=== PATIENT | female | born 1935 | race Hispanic/Latino ===

== ENCOUNTER 2017-07-02 17:21 | Emergency (ER) | payer OTHER, MEDICARE ==
[2017-07-02] MEDS ORDERED: ONDANSETRON HCL 4 MG/2 ML VIAL ONE (17:33)
[2017-07-02] MEDS ORDERED: SODIUM CHLORIDE 0.9% 1000ML 1,000 ML IV ONE (17:33)
[2017-07-02 17:55] LABS: BASOPHILS % (AUTO) 0.6 % (0.0-5.0); EOSINOPHILS % (AUTO) 0.7 % (0.0-8.0); HEMATOCRIT 39.4 % (36-48); LYMPHOCYTES % (AUTO) 17.6 % (21.0-51.0); MEAN CORPUSCULAR HEMOGLOBIN 30.8 pg (27.0-33.0); MEAN CORPUSCULAR HGB CONC 34.6 g/dL (32.0-36.0); MEAN CORPUSCULAR VOLUME 89.1 fL (79-99); MONOCYTES % (AUTO) 3.8 % (3.0-13.0); NEUTROPHILS % (AUTO) 77.3 % (40.0-77.0); PLATELET COUNT (AUTO) 218 K/uL (130-400); RED BLOOD CELL COUNT(AUTO) 4.43 MIL/uL (4.00-5.50); RED CELL DISTRIBUTION WIDTH 13.2 % (11.0-15.5); WHITE BLOOD COUNT (AUTO) 7.6 K/uL (4.8-10.8)
[2017-07-02 18:09] LABS: INR 0.99 (0.85-1.15); PROTHROMBIN TIME 10.4 SEC (9.6-11.6)
[2017-07-02 18:12] LABS: CARBON DIOXIDE 21 mmol/L (21-32); CHLORIDE 101 mmol/L (101-111); CREATININE 1.1 mg/dL (0.5-1.5); GLOMERULAR FILTR. RATE CALC 51 mL/min (>60); GLUCOSE,RANDOM 189 mg/dL (70-105); POTASSIUM 4.4 mmol/L (3.5-5.1); SODIUM SERUM 137 mmol/L (136-145); UREA NITROGEN, BLOOD 14 mg/dL (7-18)
[2017-07-02 18:23] LABS: ALANINE AMINOTRANSFERASE 15 U/L (12-78); ALBUMIN 4.3 g/dL (3.5-5.0); AMYLASE 65 U/L (25-115); ASPARTATE AMINOTRANSFERASE 16 U/L (10-37); BILIRUBIN,TOTAL 0.6 mg/dL (0.2-1.0); CREATINE KINASE MB < 0.5 ng/mL (0.5-3.6); CREATINE KINASE, TOTAL 45 U/L (21-232); LIPASE 315 U/L (114-286); TOTAL PROTEIN, SERUM 7.5 g/dL (6.0-8.3)
[2017-07-02 18:34] LABS: APPEARANCE,URINE Clear (CLEAR); BILIRUBIN,URINE Negative (NEGATIVE); COLOR,URINE Yellow (YELLOW); GLUCOSE, URINE (UA) Negative (NEGATIVE); KETONES,URINE 15 mg/dL (NEGATIVE); LEUKOCYTE ESTERASE ,URINE Trace (NEGATIVE); NITRATE,URINE Negative (NEGATIVE); OCCULT BLOOD,URINE Negative (NEGATIVE); PROTEIN,URINE Negative (NEGATIVE); UROBILINOGEN,URINE 0.2 mg/dL (0.2-1.0)
[2017-07-02 18:54] LABS: BACTERIA,URINE Rare /HPF (None Seen); RBC,URINE 0-1 /HPF (0-1); SQUAMOUS EPITHELIAL CELL,UR Few /LPF (0-2)
[2017-07-02] MEDS ORDERED: LEVOFLOXACIN 500 MG TABLET ONE (21:09)
== END 2017-07-02 21:31 | disposition home or self-care (01) ==
LOC: EDH 17:21
DX: A09 Infectious gastroenteritis and colitis, unspecified (principal); N39.0 Urinary tract infection, site not specified; E11.9 Type 2 diabetes mellitus without complications; E78.5 Hyperlipidemia, unspecified; I10 Essential (primary) hypertension; Z88.0 Allergy status to penicillin
CPT/HCPCS: 36415; 74176; 80053; 81001; 82150; 82550; 82553; 83690; 85025; 85610; 85730; 87088; 96361; 96374; 99285; J2405; J7030

== ENCOUNTER 2017-08-27 12:16 | Observation (INO) | payer OTHER, MEDICARE ==
[~2017-08-27] VITALS: Ht 157.5 cm; Wt 58.1 kg
[2017-08-27] MEDS ORDERED: ONDANSETRON HCL MDV 20ML 2 MG/ML VIAL ONE (12:29)
[2017-08-27 12:52] LABS: BASOPHILS % (AUTO) 0.7 % (0.0-5.0); HEMATOCRIT 40.1 % (36-48); LYMPHOCYTES % (AUTO) 37.5 % (21.0-51.0); MEAN CORPUSCULAR HEMOGLOBIN 31.5 pg (27.0-33.0); MEAN CORPUSCULAR HGB CONC 35.5 g/dL (32.0-36.0); MEAN CORPUSCULAR VOLUME 88.8 fL (79-99); MONOCYTES % (AUTO) 5.5 % (3.0-13.0); NEUTROPHILS % (AUTO) 55.3 % (40.0-77.0); PLATELET COUNT (AUTO) 238 K/uL (130-400); RED BLOOD CELL COUNT(AUTO) 4.51 MIL/uL (4.00-5.50); RED CELL DISTRIBUTION WIDTH 12.6 % (11.0-15.5); WHITE BLOOD COUNT (AUTO) 7.8 K/uL (4.8-10.8)
[2017-08-27 13:12] LABS: CREATININE 1.1 mg/dL (0.5-1.5); POTASSIUM 3.8 mmol/L (3.5-5.1)
[2017-08-27 13:17] LABS: ALBUMIN 4.1 g/dL (3.5-5.0); BILIRUBIN,TOTAL 0.4 mg/dL (0.2-1.0); TOTAL PROTEIN, SERUM 7.6 g/dL (6.0-8.3)
[2017-08-27] MEDS ORDERED: SODIUM CHLORIDE 0.9% 1000ML 1,000 ML IV ONE (14:25)
[2017-08-27 16:45] VITALS: BP 122/72
[2017-08-27] MEDS ORDERED: ACETAMINOPHEN 325 MG TAB PO PRN (17:00)
[2017-08-27] MEDS ORDERED: ONDANSETRON HCL 4 MG/2 ML VIAL IVP PRN (17:00)
[2017-08-27] MEDS ORDERED: MORPHINE SULFATE 4 MG/1ML SYG IVP PRN (17:00)
[2017-08-27] MEDS ORDERED: MORPHINE SULFATE 2 MG/ML 1ML SYG IVP PRN (17:15)
[2017-08-27] MEDS ORDERED: GLUCAGON 1MG KIT 1 MG ML IM PRN (17:15)
[2017-08-27] MEDS ORDERED: DEXTROSE 50%-WATER 50 ML DISP.SYRIN IV PRN (17:15)
[2017-08-27] MEDS: INSULIN R NPO SSI SQ SCH (18:00)
[2017-08-27] MEDS: SODIUM CHLORIDE 0.9% 1000ML 1,000 ML IV SCH ×2 (19:21→19:43)
[2017-08-27 20:07] VITALS: BP 116/50
[2017-08-27] MEDS ORDERED: POTASSIUM CHLORIDE 10% ELIXIR 20 MEQ/15 ML UDCUP PO PRN (23:30)
[2017-08-27] MEDS ORDERED: POTASSIUM CHLORIDE 20 MEQ ERTAB PO PRN (23:30)
[2017-08-27] MEDS ORDERED: POTASSIUM CHLORIDE 20MEQ/100ML 100 ML IV PRN (23:30)
[2017-08-27] MEDS ORDERED: HYDRALAZINE HCL 20 MG/ML VIAL IV PRN (23:30)
[2017-08-27] MEDS ORDERED: LIDOCAINE HCL-MPF 1% 2ML VIAL IVP PRN (23:30)
[2017-08-28] MEDS: INSULIN R NPO SSI SQ SCH
[2017-08-28 00:07] VITALS: BP 110/56
[2017-08-28] MEDS: SODIUM CHLORIDE 0.9% 1000ML 1,000 ML IV SCH (01:39)
[2017-08-28 03:46] VITALS: BP 104/49
[2017-08-28 05:00] LABS: HEMATOCRIT 32.7 % (36-48); MEAN CORPUSCULAR HEMOGLOBIN 30.9 pg (27.0-33.0); MEAN CORPUSCULAR HGB CONC 34.7 g/dL (32.0-36.0); PLATELET COUNT (AUTO) 175 K/uL (130-400); RED BLOOD CELL COUNT(AUTO) 3.68 MIL/uL (4.00-5.50); RED CELL DISTRIBUTION WIDTH 12.8 % (11.0-15.5)
[2017-08-28 05:06] LABS: CREATININE 1.1 mg/dL (0.5-1.5); POTASSIUM 4.1 mmol/L (3.5-5.1)
[2017-08-28 05:14] LABS: HEMOGLOBIN A1C 6.8 % (4.0-6.0)
[2017-08-28 07:34] VITALS: BP 116/61
[2017-08-28] MEDS ORDERED: PANTOPRAZOLE 40 MG/VIAL IV SCH (09:00)
[2017-08-28 10:55] VITALS: BP 136/62
[2017-08-28] MEDS ORDERED: INSULIN HUMULIN R 100 UNIT/ML 3ML SQ SCH (12:15)
[2017-08-28 16:24] VITALS: BP 141/69
[2017-08-28] MEDS ORDERED: PANTOPRAZOLE SODIUM 40 MG TABLET.DR PO SCH (16:30)
== END 2017-08-28 17:41 | disposition home or self-care (01) ==
LOC: EDH 12:16 → EDHIP 15:44 → 4BH 16:27
PROVIDERS: ADMIT Internal Medicine; ATTEND Internal Medicine
DX: K85.90 Acute pancreatitis without necrosis or infection, unspecified (principal); E86.0 Dehydration; K29.70 Gastritis, unspecified, without bleeding; A41.9 Sepsis, unspecified organism; M81.0 Age-related osteoporosis without current pathological fracture; D64.9 Anemia, unspecified; E78.5 Hyperlipidemia, unspecified; I10 Essential (primary) hypertension; E11.9 Type 2 diabetes mellitus without complications; E44.0 Moderate protein-calorie malnutrition; Z85.09 Personal history of malignant neoplasm of other digestive organs; Z90.49 Acquired absence of other specified parts of digestive tract; Z79.899 Other long term (current) drug therapy
CPT/HCPCS: 36415 ×2; 80048; 80053; 82948 ×5; 83036; 83690; 84478; 84484; 85025; 85027; 93005; 96360; 96361 ×2; 99285; C9113; G0378 ×26; J1815; J7030 ×3

== ENCOUNTER 2017-11-21 07:36 | Observation (INO) | payer OTHER, MEDICARE ==
[~2017-11-21] VITALS: Ht 157.5 cm; Wt 59.8 kg
[2017-11-21 09:18] LABS: BASOPHILS % (AUTO) 0.3 % (0.0-5.0); EOSINOPHILS % (AUTO) 0.3 % (0.0-8.0); HEMATOCRIT 35.5 % (36-48); LYMPHOCYTES % (AUTO) 7.2 % (21.0-51.0); MEAN CORPUSCULAR HEMOGLOBIN 29.6 pg (27.0-33.0); MONOCYTES % (AUTO) 4.5 % (3.0-13.0); NEUTROPHILS % (AUTO) 87.7 % (40.0-77.0); PLATELET COUNT (AUTO) 233 K/uL (130-400); RED BLOOD CELL COUNT(AUTO) 4.08 MIL/uL (4.00-5.50); RED CELL DISTRIBUTION WIDTH 13.7 % (11.0-15.5); WHITE BLOOD COUNT (AUTO) 11.6 K/uL (4.8-10.8)
[2017-11-21 09:19] LABS: APPEARANCE,URINE Clear (CLEAR); BILIRUBIN,URINE Negative (NEGATIVE); COLOR,URINE Yellow (YELLOW); GLUCOSE, URINE (UA) Negative (NEGATIVE); KETONES,URINE Trace mg/dL (NEGATIVE); LEUKOCYTE ESTERASE ,URINE Negative (NEGATIVE); NITRATE,URINE Negative (NEGATIVE); OCCULT BLOOD,URINE Negative (NEGATIVE); PROTEIN,URINE Negative (NEGATIVE); UROBILINOGEN,URINE 0.2 mg/dL (0.2-1.0)
[2017-11-21] MEDS ORDERED: FENTANYL CITRATE PF 50 MCG/1 ML 2ML VIAL ONE (09:24)
[2017-11-21 09:28] LABS: CREATININE 1.1 mg/dL (0.5-1.5); POTASSIUM 4.2 mmol/L (3.5-5.1)
[2017-11-21 09:31] LABS: BACTERIA,URINE None Seen /HPF (None Seen); RBC,URINE 0-1 /HPF (0-1); SQUAMOUS EPITHELIAL CELL,UR 0-2 /HPF (0-2); WBC,URINE None Seen /HPF (0-1)
[2017-11-21 09:34] LABS: ALBUMIN 3.3 g/dL (3.5-5.0); BILIRUBIN,TOTAL 0.5 mg/dL (0.2-1.0); TOTAL PROTEIN, SERUM 7.6 g/dL (6.0-8.3)
[2017-11-21] MEDS ORDERED: D5LR-20 MEQ KCL 1000 ML 1,000 ML IV SCH ×2 (11:45→13:00)
[2017-11-21] MEDS ORDERED: ONDANSETRON HCL 4 MG/2 ML VIAL IVP PRN (11:45)
[2017-11-21] MEDS ORDERED: HYDROCODONE/ACETAMINOPHEN 5/325 MG TAB PO PRN (11:45)
[2017-11-21] MEDS ORDERED: MORPHINE SULFATE 2 MG/ML 1ML SYG IVP PRN (11:45)
[2017-11-21] MEDS ORDERED: LEVOFLOXACIN 500 MG/D5W 100 ML 100 ML ONE (11:48)
[2017-11-21] MEDS ORDERED: POTASSIUM CHLORIDE 20 MEQ ERTAB PO PRN (12:00)
[2017-11-21] MEDS: LEVOFLOXACIN 500 MG/D5W 100 ML 100 ML IV SCH (12:00)
[2017-11-21] MEDS ORDERED: LIDOCAINE HCL-MPF 1% 2ML VIAL IJ PRN (12:00)
[2017-11-21] MEDS ORDERED: POTASSIUM CHLORIDE 20MEQ/100ML 100 ML IV PRN (12:00)
[2017-11-21] MEDS ORDERED: POTASSIUM CHLORIDE 10% ELIXIR 20 MEQ/15 ML UDCUP PO PRN (12:00)
[2017-11-21] MEDS ORDERED: HYDRALAZINE HCL 20 MG/ML VIAL IV PRN (12:00)
[2017-11-21 12:44] VITALS: BP 118/44
[2017-11-21] MEDS: PANTOPRAZOLE SODIUM 40 MG TABLET.DR PO SCH ×2 (13:00→15:44)
[2017-11-21] MEDS: METRONIDAZOLE 500MG/100ML BAG 100 ML IVPB SCH ×2 (13:54→20:17)
[2017-11-21] MEDS ORDERED: ACETAMINOPHEN 325 MG TAB PO PRN (15:30)
[2017-11-21] MEDS ORDERED: ACETAMINOPHEN 325 MG TAB ONE (15:36)
[2017-11-21 16:18] VITALS: BP 99/47
[2017-11-21] MEDS ORDERED: DEXTROSE 5%-LACTATED RINGERS 1,000 ML IV SCH (19:45)
[2017-11-21 20:00] VITALS: BP 112/52
[2017-11-21] MEDS: DEXTROSE 5%-LACTATED RINGERS 1,000 ML IV SCH (20:17)
[2017-11-21] MEDS: HEPARIN SODIUM 5000UNIT/ML 1ML VIAL SQ SCH (20:21)
[2017-11-21 23:56] VITALS: BP 111/50
[2017-11-22 04:00] VITALS: BP 100/51
[2017-11-22] MEDS: METRONIDAZOLE 500MG/100ML BAG 100 ML IVPB SCH ×3 (04:54→21:23)
[2017-11-22] MEDS ORDERED: NITR.4P TD (05:13)
[2017-11-22] MEDS ORDERED: LORA-705 PO (05:13)
[2017-11-22] MEDS ORDERED: CIPR500S5 PO (05:13)
[2017-11-22] MEDS ORDERED: CYAN1TAB44 PO (05:13)
[2017-11-22] MEDS ORDERED: ALEN70TA47 PO (05:13)
[2017-11-22] MEDS ORDERED: CLOP75TA32 PO (05:13)
[2017-11-22] MEDS ORDERED: CHOL50004 PO (05:13)
[2017-11-22] MEDS ORDERED: RANI150T7 PO (05:13)
[2017-11-22] MEDS ORDERED: ACYC800T PO (05:13)
[2017-11-22] MEDS ORDERED: LOSA50TA37 PO (05:13)
[2017-11-22 05:20] LABS: HEMATOCRIT 31.6 % (36-48); MEAN CORPUSCULAR HEMOGLOBIN 30.9 pg (27.0-33.0); MEAN CORPUSCULAR VOLUME 88.2 fL (79-99); PLATELET COUNT (AUTO) 266 K/uL (130-400); RED BLOOD CELL COUNT(AUTO) 3.58 MIL/uL (4.00-5.50); RED CELL DISTRIBUTION WIDTH 13.2 % (11.0-15.5); WHITE BLOOD COUNT (AUTO) 7.2 K/uL (4.8-10.8)
[2017-11-22 05:46] LABS: CREATININE 1.1 mg/dL (0.5-1.5); MAGNESIUM 2.3 mg/dL (1.80-2.40); POTASSIUM 4.5 mmol/L (3.5-5.1)
[2017-11-22 07:45] VITALS: BP 110/54
[2017-11-22] MEDS: HEPARIN SODIUM 5000UNIT/ML 1ML VIAL SQ SCH ×2 (09:00→21:27)
[2017-11-22] MEDS: INSULIN HUMULIN R 100 UNIT/ML 3ML SQ SCH ×3 (12:00→21:28)
[2017-11-22 12:11] VITALS: BP 126/60
[2017-11-22] MEDS: DEXTROSE 5%-LACTATED RINGERS 1,000 ML IV SCH (13:23)
[2017-11-22 16:00] VITALS: BP 130/62
[2017-11-22 20:17] VITALS: BP 140/66
[2017-11-22 23:49] VITALS: BP 121/56
[2017-11-23 04:30] VITALS: BP 135/64
[2017-11-23] MEDS: INSULIN HUMULIN R 100 UNIT/ML 3ML SQ SCH ×2 (06:00→12:00)
[2017-11-23] MEDS: METRONIDAZOLE 500MG/100ML BAG 100 ML IVPB SCH ×2 (06:35→13:33)
[2017-11-23] MEDS: DEXTROSE 5%-LACTATED RINGERS 1,000 ML IV SCH (06:36)
[2017-11-23 08:00] VITALS: BP 162/75
[2017-11-23] MEDS: PANTOPRAZOLE SODIUM 40 MG TABLET.DR PO SCH (10:33)
[2017-11-23] MEDS: HEPARIN SODIUM 5000UNIT/ML 1ML VIAL SQ SCH (10:39)
[2017-11-23] MEDS: LEVOFLOXACIN 500 MG/D5W 100 ML 100 ML IV SCH (11:57)
[2017-11-23 12:00] VITALS: BP 140/68
== END 2017-11-23 17:35 | disposition home or self-care (01) ==
LOC: EDH 07:36 → EDHIP 11:15 → INTOOBSV 11:15 → 3DH 12:23
PROVIDERS: ADMIT Internal Medicine Critical Care Medicine; ATTEND Internal Medicine Critical Care Medicine
DX: K57.32 Diverticulitis of large intestine without perforation or abscess without bleeding (principal); I10 Essential (primary) hypertension; E11.9 Type 2 diabetes mellitus without complications; E78.5 Hyperlipidemia, unspecified; R11.0 Nausea
CPT/HCPCS: 36415 ×2; 74176; 80048; 80053; 81001; 82948 ×10; 83690; 83735; 85025; 85027; 96360; 96361 ×3; 96372 ×3; 99285; G0378 ×54; J1644 ×4; J1815; J1956 ×2; J3010; J3480; J3490 ×10

== ENCOUNTER 2018-07-14 17:15 | Emergency (ER) | payer OTHER, MEDICARE ==
[~2018-07-14 17:15] MED LIST: ACYC800T PO; ALEN70TA10 PO; CHOL50004 PO; CIPR500S5 PO; CLOP75TA32 PO; CYAN1TAB44 PO; LORA-705 PO; LOSA50TA64 PO; NITR.4P TD; RANI150T7 PO
[2018-07-14] MEDS ORDERED: ONDANSETRON HCL 4 MG/2 ML VIAL ONE (18:44)
[2018-07-14] MEDS ORDERED: SODIUM CHLORIDE 0.9% 500ML 500 ML IV ONE (18:44)
[2018-07-14 18:51] LABS: BASOPHILS % (AUTO) 0.7 % (0.0-5.0); EOSINOPHILS % (AUTO) 0.4 % (0.0-8.0); HEMATOCRIT 35.1 % (36-48); LYMPHOCYTES % (AUTO) 6.6 % (21.0-51.0); MEAN CORPUSCULAR HEMOGLOBIN 31.5 pg (27.0-33.0); MEAN CORPUSCULAR HGB CONC 34.2 g/dL (32.0-36.0); MONOCYTES % (AUTO) 6.2 % (3.0-13.0); NEUTROPHILS % (AUTO) 86.1 % (40.0-77.0); PLATELET COUNT (AUTO) 155 K/uL (130-400); RED BLOOD CELL COUNT(AUTO) 3.81 MIL/uL (4.00-5.50); RED CELL DISTRIBUTION WIDTH 12.7 % (11.0-15.5); WHITE BLOOD COUNT (AUTO) 6.4 K/uL (4.8-10.8)
[2018-07-14 19:04] LABS: CREATININE 1.3 mg/dL (0.5-1.5); POTASSIUM 3.9 mmol/L (3.5-5.1)
[2018-07-14 19:08] LABS: ALBUMIN 3.6 g/dL (3.5-5.0); BILIRUBIN,DIRECT 0.2 mg/dL (0.0-0.3); BILIRUBIN,TOTAL 0.5 mg/dL (0.2-1.0); TOTAL PROTEIN, SERUM 7.1 g/dL (6.0-8.3)
[2018-07-14 19:15] LABS: APPEARANCE,URINE Clear (CLEAR); BILIRUBIN,URINE Negative (NEGATIVE); COLOR,URINE Dark Yellow (YELLOW); GLUCOSE, URINE (UA) Negative (NEGATIVE); KETONES,URINE 40 mg/dL (NEGATIVE); LEUKOCYTE ESTERASE ,URINE Small (NEGATIVE); NITRATE,URINE Negative (NEGATIVE); OCCULT BLOOD,URINE Negative (NEGATIVE); PROTEIN,URINE Negative (NEGATIVE)
[2018-07-14 19:27] LABS: BACTERIA,URINE Rare /HPF (None Seen); RBC,URINE 0-1 /HPF (0-1); SQUAMOUS EPITHELIAL CELL,UR Rare /HPF (0-2); WBC,URINE 0-1 /HPF (0-1)
[2018-07-14] MEDS ORDERED: ACETAMINOPHEN 325 MG TAB ONE (19:38)
== END 2018-07-14 20:34 | disposition home or self-care (01) ==
LOC: EDH 17:15
DX: E86.0 Dehydration (principal); J10.1 Influenza due to other identified influenza virus with other respiratory manifestations; E11.9 Type 2 diabetes mellitus without complications; I10 Essential (primary) hypertension; Z88.0 Allergy status to penicillin; Z90.49 Acquired absence of other specified parts of digestive tract
CPT/HCPCS: 36415; 71045; 74176; 80048; 80076; 81001; 83690; 85025; 87804 ×2; 93005; 96361; 96374; 99284; J2405; J7040

== ENCOUNTER → 2022-01-19 | Outpatient (CLI) | payer OTHER, MEDICARE ==
[~2022-01-19] MED LIST changes: +ACYC-138 PO; -ACYC800T PO; -ALEN70TA10 PO; +ALEN70TA80 PO; +LORA-699 PO; -LORA-705 PO
== END | disposition home or self-care (01) ==
LOC: SHCH 10:00
PROVIDERS: ATTEND Internal Medicine Cardiovascular Disease
DX: I65.23 Occlusion and stenosis of bilateral carotid arteries (principal)
CPT/HCPCS: 93880

== ENCOUNTER → 2022-01-19 | Outpatient (CLI) | payer OTHER, MEDICARE | END | disposition home or self-care (01) | LOC: SHCH 08:10 | PROVIDERS: ATTEND Internal Medicine Cardiovascular Disease | DX: I11.9 Hypertensive heart disease without heart failure (principal); I25.10 Atherosclerotic heart disease of native coronary artery without angina pectoris; E11.9 Type 2 diabetes mellitus without complications; I87.2 Venous insufficiency (chronic) (peripheral); I65.23 Occlusion and stenosis of bilateral carotid arteries; R09.89 Other specified symptoms and signs involving the circulatory and respiratory systems; Z86.73 Personal history of transient ischemic attack (TIA), and cerebral infarction without residual deficits | CPT/HCPCS: 93306; 93880 ==

== ENCOUNTER 2022-05-29 08:09 | Emergency (ER) | payer OTHER, MEDICARE ==
[~2022-05-29] VITALS: Ht 157.5 cm; Wt 59.4 kg
[2022-05-29 08:48] LABS: HEMATOCRIT 37.7 % (36-48); MEAN CORPUSCULAR HEMOGLOBIN 30.6 pg (27.0-33.0); MEAN CORPUSCULAR HGB CONC 34.2 g/dL (32.0-36.0); MEAN CORPUSCULAR VOLUME 89.3 fL (79-99); RED BLOOD CELL COUNT(AUTO) 4.22 MIL/uL (4.00-5.50); RED CELL DISTRIBUTION WIDTH 12.7 % (11.0-15.5); WHITE BLOOD COUNT (AUTO) 7.4 K/uL (4.8-10.8)
[2022-05-29 09:05] LABS: CREATININE 1.3 mg/dL (0.5-1.5); TOTAL PROTEIN, SERUM 7.2 g/dL (6.0-8.3)
[2022-05-29 10:40] VITALS: BP 145/87
== END 2022-05-29 10:55 | disposition home or self-care (01) ==
LOC: EDH 08:09
DX: I63.9 Cerebral infarction, unspecified (principal); R53.1 Weakness; R07.89 Other chest pain; E11.9 Type 2 diabetes mellitus without complications; I10 Essential (primary) hypertension; M19.90 Unspecified osteoarthritis, unspecified site; Z90.710 Acquired absence of both cervix and uterus; Z90.49 Acquired absence of other specified parts of digestive tract; Z88.0 Allergy status to penicillin; Z79.899 Other long term (current) drug therapy
CPT/HCPCS: 36415; 70450; 71045; 80053; 84484; 85027; 93005

== ENCOUNTER 2022-07-24 10:17 | Emergency (ER) | payer OTHER, MEDICARE ==
[~2022-07-24] VITALS: Ht 149.9 cm; Wt 58.1 kg
[2022-07-24 10:56] LABS: BASOPHILS % (AUTO) 0.4 % (0.0-5.0); EOSINOPHILS % (AUTO) 2.6 % (0.0-8.0); HEMATOCRIT 37.1 % (36-48); LYMPHOCYTES % (AUTO) 21.8 % (21.0-51.0); MEAN CORPUSCULAR HEMOGLOBIN 30.9 pg (27.0-33.0); MEAN CORPUSCULAR HGB CONC 32.1 g/dL (32.0-36.0); MEAN CORPUSCULAR VOLUME 96.4 fL (79-99); MONOCYTES % (AUTO) 7.8 % (3.0-13.0); PLATELET COUNT (AUTO) 216 K/uL (130-400); RED BLOOD CELL COUNT(AUTO) 3.85 MIL/uL (4.00-5.50); RED CELL DISTRIBUTION WIDTH 12.7 % (11.0-15.5); WHITE BLOOD COUNT (AUTO) 8.2 K/uL (4.8-10.8)
[2022-07-24 11:04] LABS: CREATININE 1.2 mg/dL (0.5-1.5); POTASSIUM 3.4 mmol/L (3.5-5.1)
[2022-07-24 11:09] LABS: ALBUMIN 3.5 g/dL (3.5-5.0); MAGNESIUM 1.8 mg/dL (1.80-2.40); TOTAL PROTEIN, SERUM 6.8 g/dL (6.0-8.3)
[2022-07-24] MEDS ORDERED: 0.9%NACL 1000ML 2,500 ML IV ONE (11:30)
[2022-07-24 11:52] VITALS: BP 140/65
[2022-07-24] MEDS ORDERED: DIPH1TAB PO (12:13)
== END 2022-07-24 12:51 | disposition home or self-care (01) ==
LOC: EDH 10:17
DX: R19.7 Diarrhea, unspecified (principal); E86.0 Dehydration; I10 Essential (primary) hypertension; E11.9 Type 2 diabetes mellitus without complications; Z88.0 Allergy status to penicillin; Z91.013 Allergy to seafood; Z79.899 Other long term (current) drug therapy; Z90.89 Acquired absence of other organs; Z90.710 Acquired absence of both cervix and uterus; Z90.49 Acquired absence of other specified parts of digestive tract
CPT/HCPCS: 99284; 96360; 83735; 84484; 80053; 85025; 36415; 93005; J7030

== ENCOUNTER 2022-08-15 15:36 | Emergency (ER) | payer OTHER, MEDICARE ==
[~2022-08-15] VITALS: Ht 152.4 cm; Wt 59.9 kg
[~2022-08-15 15:36] MED LIST changes: +DIPH1TAB PO
[2022-08-15] MEDS ORDERED: LIDOCAINE 5% TOPICAL PATCH TP ONE (17:00)
[2022-08-15 17:26] VITALS: BP 140/89
[2022-08-15] MEDS ORDERED: LIDO700A30 TP (18:00)
== END 2022-08-15 18:08 | disposition home or self-care (01) ==
LOC: EDH 15:36
DX: M25.511 Pain in right shoulder (principal); I10 Essential (primary) hypertension; Z79.899 Other long term (current) drug therapy; Z90.49 Acquired absence of other specified parts of digestive tract; Z90.710 Acquired absence of both cervix and uterus; Z98.890 Other specified postprocedural states; Z88.0 Allergy status to penicillin
CPT/HCPCS: 73030

== ENCOUNTER 2022-09-15 12:01 | Emergency (ER) | payer OTHER, MEDICARE ==
[~2022-09-15] VITALS: Ht 165.1 cm; Wt 77.1 kg
[~2022-09-15 12:01] MED LIST changes: +LIDO700A30 TP
[2022-09-15] MEDS ORDERED: ACETAMINOPHEN 500 MG TABLET PO ONE (12:30)
[2022-09-15 12:53] LABS: BASOPHILS % (AUTO) 0.4 % (0.0-5.0); EOSINOPHILS % (AUTO) 3.1 % (0.0-8.0); HEMATOCRIT 36.7 % (36-48); LYMPHOCYTES % (AUTO) 20.3 % (21.0-51.0); MEAN CORPUSCULAR HEMOGLOBIN 30.5 pg (27.0-33.0); MEAN CORPUSCULAR HGB CONC 33.8 g/dL (32.0-36.0); MEAN CORPUSCULAR VOLUME 90.4 fL (79-99); MONOCYTES % (AUTO) 6.7 % (3.0-13.0); NEUTROPHILS % (AUTO) 69.1 % (40.0-77.0); PLATELET COUNT (AUTO) 206 K/uL (130-400); RED BLOOD CELL COUNT(AUTO) 4.06 MIL/uL (4.00-5.50); RED CELL DISTRIBUTION WIDTH 12.7 % (11.0-15.5); WHITE BLOOD COUNT (AUTO) 7.7 K/uL (4.8-10.8)
[2022-09-15 13:10] LABS: ALBUMIN 3.8 g/dL (3.5-5.0); CREATININE 1.5 mg/dL (0.5-1.5); POTASSIUM 4.1 mmol/L (3.5-5.1); TOTAL PROTEIN, SERUM 6.6 g/dL (6.0-8.3)
[2022-09-15] MEDS ORDERED: 0.9%NACL 1000ML 1,000 ML IV ONE (13:30)
[2022-09-15] MEDS ORDERED: IOHEXOL 350 MG/ML 100ML INFUS..BTL IV ONE (14:36)
[2022-09-15] MEDS ORDERED: ACET-66 PO (16:57)
[2022-09-15 17:28] VITALS: BP 132/79
== END 2022-09-15 17:31 | disposition home or self-care (01) ==
LOC: EDH 12:01
DX: M94.0 Chondrocostal junction syndrome [Tietze] (principal); I10 Essential (primary) hypertension; E78.00 Pure hypercholesterolemia, unspecified; Z90.710 Acquired absence of both cervix and uterus; Z90.49 Acquired absence of other specified parts of digestive tract; Z88.0 Allergy status to penicillin; Z91.013 Allergy to seafood; Z79.899 Other long term (current) drug therapy; Z90.89 Acquired absence of other organs; W18.30XA Fall on same level, unspecified, initial encounter; Y93.89 Activity, other specified; Y92.89 Other specified places as the place of occurrence of the external cause; Y99.8 Other external cause status
CPT/HCPCS: 99285; 70450; 96360; 84484; 80053; 85025; 36415; 72125; 71260; 74177; 93005; J7030; Q9967

== ENCOUNTER → 2022-09-30 | Outpatient (CLI) | payer OTHER, MEDICARE ==
[~2022-09-30] MED LIST changes: +ACET-66 PO
== END | disposition home or self-care (01) ==
LOC: SHCH 09:38
PROVIDERS: ATTEND Internal Medicine Cardiovascular Disease
DX: I11.9 Hypertensive heart disease without heart failure (principal); E11.9 Type 2 diabetes mellitus without complications; E78.5 Hyperlipidemia, unspecified; Z86.73 Personal history of transient ischemic attack (TIA), and cerebral infarction without residual deficits
CPT/HCPCS: 93306; A4216

== ENCOUNTER 2024-07-07 13:26 | Observation (INO) | payer OTHER, MEDICARE ==
[~2024-07-07] VITALS: Ht 152.4 cm; Wt 63.5 kg
--- NOTE | 2024-07-07 13:52 | ERN ---
ED Note History of Present Illness Stated Complaint: FALL Chief Complaint: Mechanical Fall Time Seen by MD: 13:30 Dictation: Patient is a 89-year-old female who was brought to the many department of sustaining a fall at home. Patient states that she was feeling weak this morning, while she was walking to the restroom she fell and hit her head. Patient says she is taking baclofen for right side arm pain. Past medical history of hypertension, hyperlipidemia , CAD , diabetes, stroke, TIA. Allergies: Coded Allergies: Penicillins (Unverified Allergy, Unknown, 08/27/17) Uncoded Allergies: SEAFOOD (Allergy, Mild, 08/27/17) NAUSEA , VOMITING Home Meds Active Scripts Acetaminophen (Tylenol) 500 Mg Tab, 500 MG PO Q6HPRN PRN for PAIN LEVEL 6 TO 10 for 5 Days, #30 TAB Prov:SRINIVAS [place] MD 09/15/22 Lidocaine (Lidocaine) 1 Each Adh..patch, 1 EACH TP BID, #10 ADH.PATCH Prov:CHANEL JUSTICE 08/15/22 Diphenoxylate HCl/Atropine (Lomotil Tablet) 1 Each Tablet, 2 TAB PO TIDP PRN for DIARRHEA for 5 Days, #10 TAB 0 Refills Prov:MEETA MELGAR MD 07/24/22 Reported Medications Nitroglycerin (Nitro-Dur 0.4 mg/Hr) 1 Patch Patch, 1 PATCH TD AM, ADH.PATCH 11/22/17 Alendronate Sodium (Alendronate Sodium) 70 Mg Tablet, 70 MG PO QWEEK, TAB 11/22/17 Ranitidine HCl (Ranitidine HCl) 150 Mg Tablet, 150 MG PO BID PRN for heartburn, TAB 11/22/17 Loratadine (Loratadine) 10 Mg Tab.rapdis, 10 MG PO AM, TAB 11/22/17 Cholecalciferol (Vitamin D3) 5,000 Unit Capsule, 5000 UNIT PO AM, CAP 11/22/17 Clopidogrel Bisulfate (Clopidogrel) 75 Mg Tablet, 75 MG PO AM, TAB 11/22/17 Losartan Potassium (Losartan Potassium) 50 Mg Tablet, 50 MG PO AM, TAB 11/22/17 Ciprofloxacin (Ciprofloxacin) 500 Mg/5 Ml Mitali.mc.rec, 500 MG PO BID 11/22/17 Cyanocobalamin/Folic Acid (Vitamin U00-Vqotn Acid Tablet) 1 Each Tablet, 1 EACH PO AM, TAB 11/22/17 Acyclovir (Acyclovir) 800 Mg Tablet, 800 MG PO QID, TAB 11/22/17 Past Medical History Past Medical History: Diabetes-Type II, High Cholesterol, Heart Disease, Hypertension, Stroke Surgical History: Appendectomy, Hysterectomy, Tonsillectomy, Other Surgical History Other: HAND SURGERY Family History: HTN Social History: Negative, Lives with family, Other Review of System Dictation NEGATIVE EXCEPT PER HPI Constitutional: Reports weakness and fatigue. Patient is came for fall. Eyes: Negative for injury, pain,redness, and discharge ENT: Negative for injury,pain or swelling Cardiovascular: denies chest pain, palpitations, and edema Respiratory: Negative for shortness of breath, cough, and wheezing, Abdomen/GI: Negative for abdominal pain, nausea, vomiting, diarrhea, and constipation Back: Negative for injury and pain : Negative for injury, bleeding and discharge MS/Extremity: Negative for injury and deformity Skin: Negative for rash, and discoloration Neuro: Negative for headache, weakness, numbness, tingling, and seizure Psych: Negative for suicide ideation, homicidal ideation, and hallucinations Initial Vital Sign VS Vital Signs Date Time Temp Pulse Resp B/P (MAP) Pulse Ox O2 Delivery O2 Flow Rate FiO2 07/07/24 13:30 97.0 82 20 149/78 99 Room Air 0 07/07/24 14:27 21 Physical Exam Dictation General: awake, alert, NAD Head/Face: Normocephalic, atraumatic Eyes: PERRL, EOMI, vision at baseline ENT: oral cavity clear, TMs clear, no signs of infection Neck: Trachea midline, supple, no nuchal rigidity Cardiovascular: RRR, normal S1/S2, No MRGs, no JVD Respiratory: CTAB, no respiratory distress, No rales or wheezes Abdomen: Soft , no tender Skin: Warm, dry, normal turgor, no rash MS/Extremity: Pulses equal, no cyanosis, neurovascular intact, FROM Neuro: COAx4, GCS 15, strength 5/5, CN 2-12 intact, normal cerebellar exam, normal gait, Psych: Normal behavior, mood, and affect normal Results (Laboratory/Radiology) Laboratory/Radiology Laboratory Tests Test 07/07/24 14:29 07/07/24 15:49 White Blood Count 5.9 K/uL (4.8-10.8) Red Blood Count 3.91 MIL/uL (4.00-5.50) L Hemoglobin 12.7 g/dL (12.0-16.0) Hematocrit 38.2 % (36-48) Mean Corpuscular Volume 97.7 fL (79-99) Mean Corpuscular Hemoglobin 32.5 pg (27.0-33.0) Mean Corpuscular Hemoglobin Concent 33.2 g/dL (32.0-36.0) Red Cell Distribution Width 12.7 % (11.0-15.5) Platelet Count 203 K/uL (130-400) Mean Platelet Volume 9.6 fL (7.5-10.5) Immature Granulocyte % (Auto) 1.5 % (0-1) H Neutrophils (%) (Auto) 71.7 % (40.0-77.0) Lymphocytes (%) (Auto) 16.8 % (21.0-51.0) L Monocytes (%) (Auto) 7.1 % (3.0-13.0) Eosinophils (%) (Auto) 1.9 % (0.0-8.0) Basophils (%) (Auto) 1.0 % (0.0-5.0) Neutrophils # (Auto) 4.2 K/uL (1.8-7.7) Lymphocytes # (Auto) 1.0 K/uL (1.0-4.8) Monocytes # (Auto) 0.4 K/uL (0.1-1.0) Eosinophils # (Auto) 0.11 K/uL (0.00-0.70) Basophils # (Auto) 0.06 K/uL (0.00-0.20) Absolute Immature Granulocyte (auto 0.09 K/uL (0-1) Nucleated Red Blood Cells 0.0 % (0.0-0.19) Sodium Level 142 mmol/L (136-145) Potassium Level 4.3 mmol/L (3.5-5.1) Chloride Level 106 mmol/L (101-111) Carbon Dioxide Level 30 mmol/L (21-32) Blood Urea Nitrogen 13 mg/dL (7-18) Creatinine 1.1 mg/dL (0.5-1.0) H Glomerular Filtration Rate Calc 49 mL/min (>90) Random Glucose 239 mg/dL (70-105) H Total Calcium 8.7 mg/dL (8.5-10.1) Troponin I High Sensitivity 8 ng/L (4-50) Influenza Type A Antigen Negative For Type A Influenza Type B Antigen Negative For Type B ED Course ED Course Orders Procedure Category Date Status Time 0.9%Nacl 1000ml (Ns PHA 07/07/24 In Process 1000ml) 14:00 Cbc With Differential LAB 07/07/24 Complete 13:43 Basic Metabolic Panel LAB 07/07/24 Complete 13:43 Influenza Type A & B, LAB 07/07/24 Complete Rapid 13:43 Ct Head/Brain W/O CT 07/07/24 Resulted Contrast 13:43 Ct Cervical Spine W/O CT 07/07/24 Resulted Contrast 13:43 Acetaminophen 500mg PHA 07/07/24 Complete Tab (Tylenol 500mg T 14:00 Troponin I High LAB 07/07/24 Complete Sensitivity 13:52 Chest 1vw RAD 07/07/24 Resulted 13:52 Urinalysis Profile LAB 07/07/24 Logged 15:37 Meclizine Hcl 12.5 Mg PHA 07/07/24 Complete (Antivert 12.5 Mg) 16:00 Current Medications Medications (Trade) Dose Ordered Sig/Los Route PRN Reason Start Time Stop Time Status Last Admin Dose Admin Acetaminophen (TYLenol 500MG TAB) 500 mg ONCE ONCE PO 07/07/24 14:00 07/07/24 14:01 DC 07/07/24 14:56 Meclizine HCl (ANTIvert 12.5 mg) 12.5 mg ONCE ONCE PO 07/07/24 16:00 07/07/24 16:01 DC Sodium Chloride 1,000 ml @ 125 mls/hr ONCE ONCE IV 07/07/24 14:00 07/07/24 21:59 07/07/24 14:56 Vital Signs Date Time Temp Pulse Resp B/P (MAP) Pulse Ox O2 Delivery O2 Flow Rate FiO2 07/07/24 14:27 97.0 82 20 149/78 99 Room Air* 0 21 07/07/24 13:30 97.0 82 20 149/78 99 Room Air 0 Medical Decision Making MDM 89-year-old female with multiple comorbidities including diabetes, hypertension, CAD, stroke who presents to the ER due to a fall at home. Patient reports been feeling weak this morning prior fall. Patient taking baclofen home for pain to the right arm Syncope Side effects of baclofen causing dizziness Fall Viral infection causing weakness Dizziness Laboratory was performed in no acute abnormality was reports. CT images of head and neck was performed there is no acute fractures 1 L bolus NS was given, pain medication was prescribed. Meclizine 12.5 mg Patient was re-evaluate at bedside said she is here feeling dizzy. I discussed with the patient and family member about getting admitted for further evaluation of dizziness as well physical therapy evaluation and possible inpatient placement. [facility] hospitalist team was consulted for further admission and patient was accepted for further admission to the DX & DISP Disposition: Inpatient Decision to Admit Date: Jul 07, 2024 Decision to Admit Time: 16:50 Departure Impression: Primary Impression: Fall Additional Impressions: Dehydration, Syncopal vertigo Condition: Stable Referrals: KIRA SAL MD (PCP) CECELIA DICKSON MD Jul 07, 2024 13:52
--- NOTE | 2024-07-07 14:20 | HMCIMG ---
CT HEAD WITHOUT CONTRAST INDICATION: Fall TECHNIQUE: Noncontrast axial helical CT images from the vertex through the skull base using 5 mm slice thickness without contrast material. Coronal and sagittal reconstructions were also included. Dose reduction techniques was used using integrated, automated and adaptive dose reduction exposure control. CT was performed with one or more of the following dose reduction techniques: Automated exposure control, adjustment of the mA and/or kV according to patient size, or use of iterative reconstruction technique. COMPARISON: None FINDINGS: Mild right forehead soft tissue swelling. Scattered and coalescent subcortical and periventricular white matter low attenuating areas likely represent residual of chronic small vessel arteriopathy and/or remote vascular insult. Generalized mild cerebral cortical atrophy is present.. No evidence for abnormal extra-axial fluid collections or masses. The ventricles and sulci are normal in size and configuration. No evidence for intracranial parenchymal, epidural, or subdural hemorrhage, mass effect or midline shift. The wood-white matter differentiation is well preserved. No secondary evidence to suggest acute ischemia. Mild calcific plaque is present along the lyons of the cavernous segments of both internal carotid arteries. The brainstem and cerebellum appear normal. The visualized orbits appear unremarkable. The visible paranasal sinuses and mastoid air cells are clear. The calvarium appears normal. IMPRESSION: Chronic white matter ischemic changes, mild brain atrophy, and arteriosclerotic disease as described, without acute component.
--- NOTE | 2024-07-07 14:21 | HMCIMG ---
CT CERVICAL SPINE WITHOUT CONTRAST INDICATION: Neck pain after fall TECHNIQUE: Contiguous axial computed tomography imaging using 2 mm slice thickness through the cervical spine. Reconstructions in the sagittal and coronal planes. CT was performed with one or more of the following dose reduction techniques: Automated exposure control, adjustment of the mA and/or kV according to patient size, or use of iterative reconstruction technique. COMPARISON: None. FINDINGS: Straightening of the normal lordosis may be related to overlying muscle spasm, underlying degenerative joint disease and/or patient positioning. Vertebral bodies are normal stature without evidence for compression deformity or fracture. No evidence for subluxation. Multilevel mild to moderate cervical spondylosis. The craniocervical junction appears normal. The atlantoaxial articulation is within normal limits. The dens is intact. Mild bilateral temporomandibular degenerative joint disease. The pre- and paravertebral soft tissues appear unremarkable. IMPRESSION: No evidence for fracture or subluxation.
[2024-07-07 14:37] LABS: BASOPHILS # (AUTO) 0.06 K/uL (0.00-0.20); EOSINOPHILS # (AUTO) 0.11 K/uL (0.00-0.70); EOSINOPHILS % (AUTO) 1.9 % (0.0-8.0); HEMATOCRIT 38.2 % (36-48); IMMATURE GRANULOCYTE ABSOLUTE 0.09 K/uL (0-1); LYMPHOCYTES % (AUTO) 16.8 % (21.0-51.0); MEAN CORPUSCULAR HEMOGLOBIN 32.5 pg (27.0-33.0); MEAN CORPUSCULAR HGB CONC 33.2 g/dL (32.0-36.0); MEAN CORPUSCULAR VOLUME 97.7 fL (79-99); MONOCYTES # (AUTO) 0.4 K/uL (0.1-1.0); MONOCYTES % (AUTO) 7.1 % (3.0-13.0); NEUTROPHILS # (AUTO) 4.2 K/uL (1.8-7.7); NEUTROPHILS % (AUTO) 71.7 % (40.0-77.0); PLATELET COUNT (AUTO) 203 K/uL (130-400); RED BLOOD CELL COUNT(AUTO) 3.91 MIL/uL (4.00-5.50); RED CELL DISTRIBUTION WIDTH 12.7 % (11.0-15.5); WHITE BLOOD COUNT (AUTO) 5.9 K/uL (4.8-10.8)
[2024-07-07 14:51] LABS: CREATININE 1.1 mg/dL (0.5-1.0); POTASSIUM 4.3 mmol/L (3.5-5.1)
[2024-07-07] MEDS: 0.9%NACL 1000ML 1,000 ML IV ONE (14:56)
[2024-07-07] MEDS: acetaMINOPHEN 500 MG TABLET PO ONE (14:56)
--- NOTE | 2024-07-07 14:57 | HMCIMG ---
PORTABLE CHEST RADIOGRAPH INDICATION: fall COMPARISON: 09/15/2022 CT chest FINDINGS: Heart size is normal. The pulmonary vascularity and abena appear normal. Nominal bilateral lower lung bronchiectasis. Scarring within both lower lungs. Calcified granuloma right midlung. No evidence for consolidation. No significant pleural effusion noted. No pneumothorax detected. IMPRESSION: No radiographic evidence for any acute cardiopulmonary process.
[2024-07-07 16:15] LABS: INFLUENZA TYPE A Negative For Type A (NEGATIVE); INFLUENZA TYPE B Negative For Type B (NEGATIVE)
[2024-07-07] MEDS ORDERED: acetaMINOPHEN 325 MG TAB PO PRN (17:30)
[2024-07-07] MEDS ORDERED: hydrALAZine 20MG/ML VIAL IV PRN (17:30)
[2024-07-07] MEDS ORDERED: traMADol HCL 50 MG TABLET PO PRN (17:30)
[2024-07-07] MEDS ORDERED: LACTULOSE 20 GM/30 ML UDCUP PO PRN (17:30)
[2024-07-07] MEDS ORDERED: ondanSETRON 4MG INJ IVP PRN (17:30)
[2024-07-07 17:48] LABS: APPEARANCE,URINE CLEAR (CLEAR); BILIRUBIN,URINE NEGATIVE (NEGATIVE); COLOR,URINE LIGHT-YELLOW (YELLOW); GLUCOSE, URINE (UA) TRACE mg/dL (NEGATIVE); KETONES,URINE NEGATIVE (NEGATIVE); LEUKOCYTE ESTERASE ,URINE 250 Leu/uL (NEGATIVE); NITRATE,URINE NEGATIVE (NEGATIVE); OCCULT BLOOD,URINE NEGATIVE (NEGATIVE); PH,URINE 5.5 (5.0-8.0); PROTEIN,URINE NEGATIVE (NEGATIVE); UROBILINOGEN,URINE 0.2 mg/dL (0.2-1.0)
[2024-07-07 17:49] LABS: ADD UA MICROSCOPIC YES
[2024-07-07 17:50] LABS: RBC,URINE 0-1 /HPF (0-1); SQUAMOUS EPITHELIAL CELL,UR RARE /HPF (0-2)
[2024-07-07] MEDS: LACTATED RINGERS 1000ML 1,000 ML IV SCH (18:34)
[2024-07-07] MEDS: mecliZINE HCL 12.5 MG TABLET PO ONE (18:51)
--- NOTE | 2024-07-07 19:39 | NUR ---
DAUGHTER DEJUAN GRAY, .
--- NOTE | 2024-07-07 20:32 | HP ---
[facility] HISTORY & PHYSICAL Date Patient Seen: Jul 07, 2024 Time of Visit: 20:32 Supervising Physician: Dr. Weiner Primary Care Physician: KIRA SAL MD (PCP) Outpatient Specialists: Repair Tech: Dr. Kunal Bauer Inpatient Consults: [facility] heart clinic and Neurology PROBLEM LIST: Fall s/p syncopal vertigo, POA Right forehead soft tissue edema, s/p fall, POA Acute complicated cystitis, POA Dehydration, POA Acute on chronic kidney disease stage 3A, GFR 49, POA (prior GFR 34 on 09/15/2022, remote GFR 07/02/2017 was 51) Diabetes mellitus with hyperglycemia, POA Anemia of chronic kidney disease, POA Arthrosclerotic disease, per CT head on 07/07/2024 Mild calcified plaque along the lyons of the cavernous segments of both internal carotid arteries, per CT head on 07/07/2024 Chronic problem list: HTN, HDL, CAD, DM, CVA, and TIA HPI: Ms. 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 Patient stated that she was feeling weak this morning. She was walking to the restroom, was dizzy, and fell. She reports that she does not remember much from the fall but that she did hit her head. Patient says she is taking baclofen for right side arm pain, but had not taken it in the morning. She reports she did not take any medications that cause the dizziness. The patient is negative for influenza and COVID. Remarkable lab results: RBC 3.91, creatinine 1.1, GFR 49, glucose 239, UA: Trace glucose, positive leuk EST. CT head: Chronic white matter ischemic changes, mild brain atrophy, and arthrosclerotic disease without acute component. CT spine without contrast: No evidence of fracture or subluxation. Chest x-ray: Negative. In ED patient was administered meclizine 12.5 mg p.o., Tylenol 500 mg p.o., and NS1 L. ED provider request patient be admitted with the diagnosis of fall, dehydration, syncopal episode. Patient was admitted by [facility] team. I went to assess the patient at bedside in ED hallway A1. No family at bedside. Patient's breathing was even, unlabored, appeared in no distress. Slow to respond, slow to understand, and forgetful. Patient denies any chest pain, shortness of breath, any recent illness prior to the fall. Patient reported shantel t she also had an episode of dizziness about three years ago, but does not recall would diagnostics were done then. 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 Orthostatic vital signs: Lying 131/61, heart rate 64 bpm. Sitting 133/87, heart rate 72 beats per minute. Standing 166/66, heart rate 78 beats per minute. Informed her of labs, diagnostics, plan of care. She verbalized understanding and is in agreement with plan. Plan and assessment as listed below. PAST MEDICAL HX: see above PAST SURGICAL HX: Appendectomy, Hysterectomy, Tonsillectomy, Hand surgery SOCIAL HISTORY: No tobacco, ETOH, or illicit drug use Lives with family Coded Allergies: Penicillins (Unverified Allergy, Unknown, 08/27/17) Uncoded Allergies: SEAFOOD (Allergy, Mild, 08/27/17) NAUSEA , VOMITING REVIEW OF SYSTEMS: 12 point ROS reviewed with patient. Pertinent positives mentioned above. Otherwise negative. PHYSICAL EXAM: GENERAL: Alert, weak, awake oriented x 3 HEENT: EOMI, Sclera non icteric, moist mucosa NECK: Supple, no JVD, trachea midline LUNGS: Clear breath sounds bilaterally. No wheezes HEART: Regular rate and rhythm. Normal S1 and S2, without murmurs ABD: Abdomen soft, nontender. Bowel sounds present EXT: No clubbing cyanosis or edema NEURO: Alert and oriented X3, follows commands, forgetful, slow to understand. Vital Signs (last 8hr) Date Time Temp Pulse Resp B/P (MAP) Pulse Ox O2 Delivery O2 Flow Rate FiO2 07/07/24 17:57 98.1 60 18 146/46 99 Room Air* 0 21 07/07/24 14:27 97.0 82 20 149/78 99 Room Air* 0 21 07/07/24 13:30 97.0 82 20 149/78 99 Room Air 0 LABS: Hematology Labs: Test 07/07/24 14:29 Range/Units White Blood Count 5.9 4.8-10.8 K/uL Red Blood Count 3.91 L 4.00-5.50 MIL/uL Hemoglobin 12.7 12.0-16.0 g/dL Hematocrit 38.2 36-48 % Mean Corpuscular Volume 97.7 79-99 fL Mean Corpuscular Hemoglobin 32.5 27.0-33.0 pg Mean Corpuscular Hemoglobin Concent 33.2 32.0-36.0 g/dL Red Cell Distribution Width 12.7 11.0-15.5 % Platelet Count 203 130-400 K/uL Mean Platelet Volume 9.6 7.5-10.5 fL Immature Granulocyte % (Auto) 1.5 H 0-1 % Neutrophils (%) (Auto) 71.7 40.0-77.0 % Lymphocytes (%) (Auto) 16.8 L 21.0-51.0 % Monocytes (%) (Auto) 7.1 3.0-13.0 % Eosinophils (%) (Auto) 1.9 0.0-8.0 % Basophils (%) (Auto) 1.0 0.0-5.0 % Neutrophils # (Auto) 4.2 1.8-7.7 K/uL Lymphocytes # (Auto) 1.0 1.0-4.8 K/uL Monocytes # (Auto) 0.4 0.1-1.0 K/uL Eosinophils # (Auto) 0.11 0.00-0.70 K/uL Basophils # (Auto) 0.06 0.00-0.20 K/uL Absolute Immature Granulocyte (auto 0.09 0-1 K/uL Nucleated Red Blood Cells 0.0 0.0-0.19 % Chemistry Labs: Test 07/07/24 14:29 Range/Units Sodium Level 142 136-145 mmol/L Potassium Level 4.3 3.5-5.1 mmol/L Chloride Level 106 101-111 mmol/L Carbon Dioxide Level 30 21-32 mmol/L Blood Urea Nitrogen 13 7-18 mg/dL Creatinine 1.1 H 0.5-1.0 mg/dL Glomerular Filtration Rate Calc 49 >90 mL/min Random Glucose 239 H 70-105 mg/dL Total Calcium 8.7 8.5-10.1 mg/dL Troponin I High Sensitivity 8 4-50 ng/L DIAGNOSTICS / RADIOLOGY RESULTS: [ ] PLAN Admit to PCCU with continuous telemetry monitoring and fall precautions. Start Levaquin 750 IV daily. (allergies to penicillin) Neurological checks every 4 hours and as needed. Antiplatelet therapy with aspirin. Atorvastatin 40 mg p.o. daily. Blood pressure checks every 4 hours and as needed. Systolic blood pressure between 120s to 160 to maintain accurate brain perfusion. Keep NPO for now until passes dysphagia screen by nurse. Consult neurology evaluation of dizziness, syncopal vertigo. Consult Cardiology for evaluation of dizziness. Patient of [facility]. Pending echo and carotid Doppler. PT/OT to evaluate and treat. A.m. labs: CBC, BNP, Mag, phos, TSH, A1c. Monitor renal and liver function. Monitor electrolytes and treat accordingly. GI and DVT prophylaxis. NEURO: Minimize central acting medications as possible. Maintain fall precautions, adequate lighting during the day PULMONARY: Supplemental 02 as needed. Maintain aspiration precautions at all times CARDIOVASCULAR: Follow hemodynamics. Vital signs per facility protocol GI & NUTRITION: Continue with nutritional support. Continue stool softeners and laxatives as needed. KIDNEYS & ELECTROLYTES: Strict monitoring of intake, output and overall fluid balance. Avoid nephrotoxic medications to the extent possible. Medications to be dosed according to renal function. Monitor electrolytes and replace as needed ENDOCRINE: Maintain blood glucose between 100-180 at all times. Hypoglycemia protocol in place INFECTIOUS DISEASE: Trend temperature, WBC and procalcitonin level Follow cultures, deescalate antibiotics as soon as possible. Panculture if new onset fever ONCOLOGY/HEMATOLOGY/COAGULATION: Monitor for s/s of bleeding Monitor hemoglobin, coagulation studies as needed SKIN: Pressure ulcer prevention per facility protocol Specialty mattress ORTHO/REHAB: Continue PT/OT Prophylaxis: Continue GI and DVT prophylaxis Code Status: Full Resuscitation Disposition: KAYLA CHEN Jul 07, 2024 20:32
[2024-07-07 21:40] LABS: SARS-CoV-2, RNA, NAAT NEGATIVE SARS CoV-2 (NEGATIVE)
[2024-07-08] MEDS: levoFLOXacin 750 MG TABLET PO SCH (03:24)
[2024-07-08] MEDS: atorVAStatin 40 MG TABLET PO SCH (03:24)
[2024-07-08] MEDS: ASPIRIN 81MG CHEW TAB PO ONE (03:24)
[2024-07-08 07:06] LABS: BASOPHILS # (AUTO) 0.06 K/uL (0.00-0.20); BASOPHILS % (AUTO) 0.9 % (0.0-5.0); EOSINOPHILS # (AUTO) 0.13 K/uL (0.00-0.70); EOSINOPHILS % (AUTO) 1.9 % (0.0-8.0); HEMATOCRIT 36.8 % (36-48); IMMATURE GRANULOCYTE ABSOLUTE 0.07 K/uL (0-1); LYMPHOCYTES # (AUTO) 1.5 K/uL (1.0-4.8); LYMPHOCYTES % (AUTO) 22.2 % (21.0-51.0); MEAN CORPUSCULAR HEMOGLOBIN 32.4 pg (27.0-33.0); MEAN CORPUSCULAR HGB CONC 33.4 g/dL (32.0-36.0); MEAN CORPUSCULAR VOLUME 96.8 fL (79-99); MONOCYTES # (AUTO) 0.5 K/uL (0.1-1.0); NEUTROPHILS # (AUTO) 4.5 K/uL (1.8-7.7); PLATELET COUNT (AUTO) 204 K/uL (130-400); RED CELL DISTRIBUTION WIDTH 12.7 % (11.0-15.5); WHITE BLOOD COUNT (AUTO) 6.7 K/uL (4.8-10.8)
[2024-07-08 07:13] LABS: POTASSIUM 4.9 mmol/L (3.5-5.1)
[2024-07-08] MEDS: INSULIN humuLIN R 100 UNIT/ML 3ML SQ SCH (07:30)
[2024-07-08 07:35] VITALS: TEMP 98.6
--- NOTE | 2024-07-08 07:46 | CONS ---
CONSULTATION NOTE Date of Service: Jul 08, 2024 Reason for Consultation: Evaluation of generalized weakness and dizziness Requesting Physician: Dr Weiner HISTORY OF PRESENT ILLNESS: This is a very nice 89 years old lady that has a past medical history remarkable for dyslipidemia, diabetes mellitus type 2, obesity, essential hypertension, CVA/TIA who was admitted for evaluation and management of dizziness. The patient states being in her usual state of health until yesterday with the patient had a sudden onset of dizziness mostly described as a lightheadedness with generalized weakness but no loss of consciousness. The patient denies having any room spinning sensation no right-sided or left-sided weakness numbness or tingling sensation. The patient's symptoms were triggered by standing up quickly from a sitting position. 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 Currently, she reports no ongoing diz ziness and feels normal when moving her head. REVIEW OF SYSTEMS CONSTITUTIONAL: Denies fever, chills, or fatigue. HEAD/FACE: No signs of trauma. EENT: Denies eye pain, blurred vision, double vision, or light sensitivity. RESPIRATORY: Denies shortness of breath, cough, wheezing CARDIOVASCULAR: Dizziness. Denies chest pain, palpitation GASTROINTESTINAL/ABDOMINAL: Denies abdominal pain, constipation, diarrhea, nausea or vomiting GENITOURINARY: Denies dysuria or hematuria. MUSCULOSKELETAL: Denies joint pain, tenderness, or trauma. INTEGUMENTARY: Denies rash or itchiness NEUROLOGICAL/PSYCH: Dizziness generalized weakness PAST MEDICAL HISTORY: Essential hypertension, diabetes mellitus type 2, obesity, dyslipidemia, TIA PAST SURGICAL HISTORY: Noncontributory PAST SOCIAL HISTORY: No tobacco alcohol recreational drug abuse FAMILY HISTORY: No family history of stroke or seizures Coded Allergies: Penicillins (Unverified Allergy, Unknown, 08/27/17) Uncoded Allergies: SEAFOOD (Allergy, Mild, 08/27/17) NAUSEA , VOMITING PHYSICAL EXAM Mental status: The patient is alert, attentive, and oriented. Speech is clear and fluent with good repetition, comprehension, and naming. Pt recalls 3/3 objects at 5 minutes. Cranial nerves: CN II: Visual zendejas are full to confrontation. CN III, IV, : At primary gaze, there is no eye deviation. CN V: Facial sensation is intact to pinprick in all 3 divisions bilaterally. Corneal responses are intact. CN VII: Face is symmetric with normal eye closure and smile. CN VIII: Hearing is normal to rubbing fingers CN IX, X: Palate elevates symmetrically. Phonation is normal. CN XI: Head turning and shoulder shrug are intact CN XII: Tongue is midline with normal movements and no atrophy. Motor: There is no pronator drift of out-stretched arms. Muscle bulk and tone are normal. Strength is full bilaterally. Reflexes: Reflexes are 2+ and symmetric at the biceps, triceps, knees, and ankles. Plantar responses are flexor. Sensory: Light touch, pinprick, position sense, and vibration sense are intact in fingers and toes. Coordination: Rapid alternating movements and fine finger movements are intact. There is no dysmetria on [id number] and [id number]. There are no abnormal or extraneous movements. Romberg is absent. Gait/Stance: Not evaluated Vital Sign (Last 24 Hours) 07/08/24 07/08/24 01:14 05:20 Temp 98.1 Pulse 59 Resp 16 B/P (MAP) 151/61 Pulse Ox 99 O2 Delivery Room Air* O2 Flow Rate 0 FiO2 21 LABS: Laboratory: Test 07/08/24 06:49 07/07/24 21:18 07/07/24 17:41 07/07/24 15:49 Range/Units White Blood Count 6.7 4.8-10.8 K/uL Red Blood Count 3.80 L 4.00-5.50 MIL/uL Hemoglobin 12.3 12.0-16.0 g/dL Hematocrit 36.8 36-48 % Mean Corpuscular Volume 96.8 79-99 fL Mean Corpuscular Hemoglobin 32.4 27.0-33.0 pg Mean Corpuscular Hemoglobin Concent 33.4 32.0-36.0 g/dL Red Cell Distribution Width 12.7 11.0-15.5 % Platelet Count 204 130-400 K/uL Mean Platelet Volume 9.6 7.5-10.5 fL Immature Granulocyte % (Auto) 1.0 0-1 % Neutrophils (%) (Auto) 67.0 40.0-77.0 % Lymphocytes (%) (Auto) 22.2 21.0-51.0 % Monocytes (%) (Auto) 7.0 3.0-13.0 % Eosinophils (%) (Auto) 1.9 0.0-8.0 % Basophils (%) (Auto) 0.9 0.0-5.0 % Neutrophils # (Auto) 4.5 1.8-7.7 K/uL Lymphocytes # (Auto) 1.5 1.0-4.8 K/uL Monocytes # (Auto) 0.5 0.1-1.0 K/uL Eosinophils # (Auto) 0.13 0.00-0.70 K/uL Basophils # (Auto) 0.06 0.00-0.20 K/uL Absolute Immature Granulocyte (auto 0.07 0-1 K/uL Nucleated Red Blood Cells 0.0 0.0-0.19 % Sodium Level 146 H 136-145 mmol/L Potassium Level 4.9 3.5-5.1 mmol/L Chloride Level 109 101-111 mmol/L Carbon Dioxide Level 30 21-32 mmol/L Blood Urea Nitrogen 10 7-18 mg/dL Creatinine 1.0 0.5-1.0 mg/dL Glomerular Filtration Rate Calc 55 >90 mL/min Random Glucose 105 # 70-105 mg/dL Total Calcium 8.4 L 8.5-10.1 mg/dL Magnesium Level 2.00 1.80-2.40 mg/dL SARS-CoV-2, RNA, NAAT NEGATIVE SARS CoV-2 NEGATIVE Urine Color LIGHT-YELLOW YELLOW Urine Appearance CLEAR CLEAR Urine pH 5.5 5.0-8.0 Urine Specific [place] 1.011 1.001-1.031 Urine Protein NEGATIVE NEGATIVE mg/dL Urine Glucose (UA) TRACE H NEGATIVE mg/dL Urine Ketones NEGATIVE NEGATIVE mg/dL Urine Occult Blood NEGATIVE NEGATIVE Urine Nitrate NEGATIVE NEGATIVE Urine Bilirubin NEGATIVE NEGATIVE mg/dL Urine Urobilinogen 0.2 0.2-1.0 mg/dL Urine Leukocyte Esterase 250 H NEGATIVE [place]/uL Urine RBC 0-1 0-1 /HPF Urine WBC 11-25 H 0-1 /HPF Urine Squamous Epithelial Cells RARE 0-2 /HPF Urine Bacteria None None Seen /HPF Influenza Type A Antigen Negative For Type A NEGATIVE Influenza Type B Antigen Negative For Type B NEGATIVE Test 07/07/24 14:29 Range/Units Troponin I High Sensitivity 8 4-50 ng/L DIAGNOSTICS / RADIOLOGY: CT scan of the head without contrast: Cortical atrophy ASSESSMENT / PLAN: 1).- Near syncopal episode due to orthostatic hypotension- the patient had a generalized weakness in association with lightheadedness when standing up from a sitting position. Orthostatics taken by nurse practitioner in the emergency room with more than 10 points of diastolic drop from lying down to standing. Transthoracic echocardiogram and carotid ultrasound has been requested the primary team. No focal deficits to suspect a stroke or TIA. No further tests are needed from the neurological standpoint. The patient was educated on her diagnosis and expressed understanding. Thank you for consultation I will sign off JASSI GA MD Jul 08, 2024 07:46
--- NOTE | 2024-07-08 08:32 | HMCIMG ---
US CAROTID DUPLEX HISTORY: Syncope, vertigo, dizziness COMPARISON: None TECHNIQUE: Duplex carotid arterial Doppler ultrasound study was performed. FINDINGS: The common, internal and external carotid arteries are visualized. The peak systolic velocities of right common carotid artery is 52 centimeters per second, right internal carotid artery is 82 centimeters per second, right external carotid artery is 58 centimeters per second, and right vertebral artery is 99 centimeters per second. Right internal carotid artery to right common carotid artery ratio is 1.6. Right vertebral artery is seen with antegrade flow. The peak systolic velocities of left common carotid artery is 43 centimeters per second, left internal carotid artery is 54 centimeters per second, left external carotid artery is 50 centimeters per second, and left vertebral artery is 29 centimeters per second. Left internal carotid artery to left common carotid artery ratio is 1.5. Left vertebral artery is seen with antegrade flow. There are bilateral echogenic plaques. IMPRESSION: 1. No hemodynamically significant lesion is seen of either extracranial carotid artery system.
[2024-07-08] MEDS: ENOXAPARIN SODIUM 30 MG/0.3 ML SQ SCH (09:32)
[2024-07-08] MEDS: PANTOPrazole 40 MG TAB DR PO SCH (09:32)
[2024-07-08] MEDS: ASPIRIN 81 MG EC TAB PO SCH (09:32)
[2024-07-08 09:46] VITALS: BP 106/65; PULSE 105; RESP 17; O2SAT 98
--- NOTE | 2024-07-08 10:00 | NUR ---
TIMMY GAN AT BEDSIDE WITH PT AND FAMILY. PT AND FAMILY ADAMANT OF WANTING TO LEAVE AMA. TIMMY MCLEAN EXPLAINED POSSIBLE RISKS. AMA FORMED SIGNED AND IN PT CHART.
--- NOTE | 2024-07-08 19:08 | DS ---
[facility] DISCHARGE SUMMARY Late entry for services provided at 10:00 a.m. Date Patient Seen: Jul 08, 2024 Time of Visit: 18:53 Supervising Physician: Dr. Weiner Primary Care Physician: KIRA SAL MD (PCP) Outpatient Specialists: Engineering Psychologist: Dr. Kunal Bauer Inpatient Consults: [facility] and Neurology PROBLEM LIST: Fall s/p syncopal vertigo, POA Right forehead soft tissue edema, s/p fall, POA Acute complicated cystitis, POA Dehydration, POA Acute on chronic kidney disease stage 3A, GFR 49, POA (prior GFR 34 on 09/15/2022, remote GFR 07/02/2017 was 51) Diabetes mellitus with hyperglycemia, POA Anemia of chronic kidney disease, POA Arthrosclerotic disease, per CT head on 07/07/2024 Mild calcified plaque along the lyons of the cavernous segments of both internal carotid arteries, per CT head on 07/07/2024 Chronic problem list: HTN, HDL, CAD, DM, CVA, and TIA HOSPITAL COURSE: HPI (per admitting provider) Ms. Beard is a 89-year-old female with a history of HTN, HDL, CAD, DM, CVA, and TIA who presented to the ED for evaluation of a fall at home onset [employer]. Patient stated that she was feeling weak in the morning, she was walking to the restroom, suddenly felt dizzy dizzy and fell. She reports that she does not remember much from the fall, but that she did hit her head. Patient says she is taking baclofen for right side arm pain, but had not taken it in the morning. She reports she did not take any medications that cause the dizziness. In the emergency department, her workup as reviewed was negative for influenza and COVID. Remarkable lab results: RBC 3.91, creatinine 1.1, GFR 49, glucose 239, UA: Trace glucose, positive leuk EST. CT head: Chronic white matter ischemic changes, mild brain atrophy, and arthrosclerotic disease without acute component. CT spine without contrast: No evidence of fracture or subluxation. Chest x-ray: Negative. In the ED, initial management included a L bolus of NS and was also given meclizine 12.5 mg. On re-evaluation, the patient was still complaining of feeling dizzy reason why the patient was admitted for further evaluation and workup of her dizziness. Neurologist was consulted evaluation and management of her dizziness. Per the neurologist recommendation, the condition was consistent with generalized weakness in association with lightheadedness when standing up from a sitting position. Orthostatics vital si gns in the emergency room with more than 10 points of diastolic drop from lying down to standing, was again consistent with sudden change. Despite this, there was no focal deficits seen requiring further testing and workup from the Neurology standpoint and the neurologist signed off the case. There was a 2D echo that was requested and is yet to be done. The patient's daughter was present at the bedside and made mentioned that she will be taking her mother home against medical advice. I was advised by the staff nurse that the patient had already signed the form and was getting ready to leave. I did have a discussion with the patient at length at the bedside in presence of the daughter regarding the causes of dizziness, the risks she may face with subsequent syncopal episodes including head trauma and also advised the patient that she should follow up with her PCP in the next 24-48 hours. The patient and daughter was advised that if dizziness were to recur and is not able to visit with her PCP, she may always return to the emergency department for further evaluation and management of her condition. They voiced understanding. Patient will be going home. The patient was treated for the following problems: Dizziness with near syncope ACTIVE PROBLEM LIST FOR THE HOSPITALIZATION: Fall s/p syncopal vertigo, POA Right forehead soft tissue edema, s/p fall, POA Acute complicated cystitis, POA Dehydration, POA Acute on chronic kidney disease stage 3A, GFR 49, POA (prior GFR 34 on , remote GFR 07/02/2017 was 51) Diabetes mellitus with hyperglycemia, POA Anemia of chronic kidney disease, POA Arthrosclerotic disease, per CT head on 07/07/2024 Mild calcified plaque along the lyons of the cavernous segments of both internal carotid arteries, per CT head on 07/07/2024 HTN, HDL, CAD, DM, CVA, and TIA CHRONIC PROBLEMS: Continue previous management per PCP unless otherwise indicated 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 Orthostatics taken by nurse practitioner in the emergency room with more than 10 points of diastolic drop from lying down to standing. No focal deficits to suspect a stroke or TIA. No further tests are needed from the neurological standpoint. PROCEDURES: as mentioned above DISCHARGE MEDICATIONS: Per med list Pt hemodynamically stable and afebrile at time of discharge. PCP notified of patients admission, hospital course and discharge. PHYSICAL EXAM: GENERAL: Alert, weak, awake oriented x 3 HEENT: EOMI, Sclera non icteric, moist mucosa NECK: Supple, no JVD, trachea midline LUNGS: Clear breath sounds bilaterally. No wheezes HEART: Regular rate and rhythm. Normal S1 and S2, without murmurs ABD: Abdomen soft, nontender. Bowel sounds present EXT: No clubbing cyanosis or edema NEURO: Alert and oriented X3, follows commands, forgetful, slow to understand. FOLLOW-UP: Follow-up with PCP in 24-48 hours RECOMMENDATIONS: See Discharge Instructions This case was seen and discussed with my supervising physician. More than 30 minutes spent on discharge process, including evaluation of the patient, discussion with nursing staff, medication reconciliation and follow-up appointments KEV GAN NP Jul 08, 2024 19:08
== END 2024-07-08 10:00 | disposition left against medical advice (07) ==
LOC: EDH 13:26 → EDHIP 17:08
PROVIDERS: ADMIT Internal Medicine Critical Care Medicine; ATTEND Internal Medicine Critical Care Medicine
DX: R55 Syncope and collapse (principal); Z20.822 Contact with and (suspected) exposure to COVID-19; R60.0 Localized edema; N30.00 Acute cystitis without hematuria; E86.0 Dehydration; I12.9 Hypertensive chronic kidney disease with stage 1 through stage 4 chronic kidney disease, or unspecified chronic kidney disease; E11.22 Type 2 diabetes mellitus with diabetic chronic kidney disease; N18.31 Chronic kidney disease, stage 3a; E11.65 Type 2 diabetes mellitus with hyperglycemia; N17.9 Acute kidney failure, unspecified; D63.1 Anemia in chronic kidney disease; I25.10 Atherosclerotic heart disease of native coronary artery without angina pectoris; E78.00 Pure hypercholesterolemia, unspecified; B34.9 Viral infection, unspecified; Z88.0 Allergy status to penicillin; Z79.899 Other long term (current) drug therapy; Z90.710 Acquired absence of both cervix and uterus; Z86.73 Personal history of transient ischemic attack (TIA), and cerebral infarction without residual deficits; W19.XXXA Unspecified fall, initial encounter; Y93.89 Activity, other specified; Y92.098 Other place in other non-institutional residence as the place of occurrence of the external cause; Y99.8 Other external cause status
CPT/HCPCS: 96360; 96361 ×2; 99284; 84484; 80048 ×2; 85025 ×2; 87086; 87804 ×2; 81001; 36415 ×2; 87635; 71045; 70450; 72125; 83735; 93880; G0378 ×17; J7120; J7030; J1650